=== PATIENT | female | born 1955 | race African-American/Black ===

== ENCOUNTER → 2019-01-11 | Outpatient (CLI) | payer OTHER ==
--- NOTE | 2019-01-11 17:44 | RAD ---
LUMBAR SPINE 2-3V DATE: 01/11/2019 12:00 AM INDICATION: Osteoarthritis COMPARISON: None. FINDINGS: Five non-rib bearing lumbar-type vertebral bodies are present. Bones/Alignment: No evidence of acute compression fracture. 10 mm anterolisthesis at L5-S1. Joints: Mild multilevel disc space height loss, worst and moderate at L5-S1. Miscellaneous: Aortoiliac vascular calcifications. IMPRESSION: Lumbar spondylosis, worst at L5-S1 where there is also grade 1 anterolisthesis Electronically signed by: Lopez Levin MD (01/11/2019 5:41 PM) [facility]
== END | disposition home or self-care (01) ==
LOC: RAD 09:53
PROVIDERS: ATTEND Family Medicine
DX: Z02.71 Encounter for disability determination (principal); M47.817 Spondylosis without myelopathy or radiculopathy, lumbosacral region; I70.0 Atherosclerosis of aorta; I70.8 Atherosclerosis of other arteries
CPT/HCPCS: 72100